=== PATIENT | female | born 1950 | race Caucasian/White ===

== ENCOUNTER → 2017-08-01 11:00 | Outpatient (CLI) | payer MEDICARE, OTHER, SELFPAY ==
[2017-08-01 12:59] LABS: Alanine Aminotransferase 29 IU/L (9-52); Albumin 4.2 g/dL (3.5-5.0); Albumin Globulin Ratio 1.6 (1.0-2.8); Alkaline Phosphatase 85 U/L (38-126); Aspartate Aminotransferase 27 IU/L (14-36); Bilirubin Total 0.8 mg/dL (0.2-1.3); Blood Urea Nitrogen 12 mg/dL (7-17); Calcium 9.3 mg/dL (8.4-10.2); Carbon Dioxide 31 mmol/L (22-32); Chloride 99 mmol/L (98-107); Cholesterol 175 mg/dL (140-199); Estimated Glomerular Filt Rate > 60.0 mL/min (>60); Globulin 2.7 g/dL (1.7-4.1); Glucose 114 mg/dL (80-110); HDL Cholesterol 65 mg/dL (40-60); HEMOLYSIS < 15 (0-50); LDL Cholesterol Calculated 94 mg/dL (<100); Potassium 4.1 mmol/L (3.4-5.1); Sodium 139 mmol/L (137-145); Total Protein 6.9 g/dL (6.3-8.2); Triglycerides 82 mg/dL (35-150)
== END ==
PROVIDERS: Family Provider Internal Medicine; PCP Internal Medicine; Visit Provider Internal Medicine
DX: E05.90 Thyrotoxicosis, unspecified without thyrotoxic crisis or storm (principal); E78.2 Mixed hyperlipidemia
CPT/HCPCS: 36415; 80053; 80061; 84439; 84443

== ENCOUNTER → 2018-04-11 12:00 | Outpatient (CLI) | payer OTHER, SELFPAY ==
[2018-04-11 14:35] LABS: Appearance Urine UA CLEAR; Bilirubin Urine UA NEGATIVE (NEGATIVE); Color Urine UA YELLOW; Glucose Urine UA NEGATIVE (Negative); Ketones Urine UA NEGATIVE (NEGATIVE); Leukocyte Esterase Urine UA 1+ (NEGATIVE); Nitrite Urine UA NEGATIVE (Negative); Occult Blood Urine UA TRACE-LYSED (Negative); Protein Urine UA NEGATIVE (Negative); Specific Gravity Urine UA 1.015 (1.000-1.035); Urobilinogen Urine UA 0.2 E.U./dL (0.2)
[2018-04-11 15:23] LABS: Bacteria Urine Few (2-10); Culture Indicated Urine Specimen Cultured; RBC Urine 0-1/HPF (0-5/HPF); Squamous Epithelial Cell Urine 0-1 /HPF; WBC Urine 5-10/HPF (0-5/HPF)
== END ==
PROVIDERS: PCP Internal Medicine; Visit Provider Internal Medicine
DX: R39.89 Other symptoms and signs involving the genitourinary system (principal)
CPT/HCPCS: 81001; 87086

== ENCOUNTER → 2018-06-20 11:02 | Outpatient (CLI) | payer OTHER, SELFPAY ==
--- NOTE | 2018-06-20 | DI.MG.S_ITS ---
BILATERAL DIGITAL SCREENING MAMMOGRAM 3D/2D WITH CAD: 06/20/2018 CLINICAL: Routine screening. Family history of breast cancer. Comparison is made to exams dated: 06/13/2017 mammogram, 04/14/2015 mammogram, and 04/11/2014 mammogram - [facility]. The tissue of both breasts is heterogeneously dense. This may lower the sensitivity of mammography. Current study was also evaluated with a Computer Aided Detection (CAD) system. No significant masses, calcifications, or other findings are seen in either breast. There has been no significant interval change. IMPRESSION: NEGATIVE There is no mammographic evidence of malignancy. A 1 year screening mammogram is recommended. This exam was interpreted at Station ID: [id number]. NOTE: For mammograms, a report in lay terms will be sent to the patient. Approximately 15% of breast malignancies will not be visualized mammographically. In the management of a palpable breast mass, a negative mammogram must not discourage biopsy of a clinically suspicious lesion. Electronically Signed By: Lizzy lambert/yuniel:06/20/2018 17:48:14 letter sent: Normal Exam ACR BI-RADS Category 1: Negative 3341F
== END ==
PROVIDERS: PCP Internal Medicine; Visit Provider Internal Medicine
DX: Z12.31 Encounter for screening mammogram for malignant neoplasm of breast (principal); Z80.3 Family history of malignant neoplasm of breast
CPT/HCPCS: 77063; 77067

== ENCOUNTER → 2018-08-07 11:31 | Outpatient (CLI) | payer OTHER, SELFPAY ==
[2018-08-07 14:29] LABS: Alanine Aminotransferase 23 IU/L (9-52); Albumin 4.1 g/dL (3.5-5.0); Albumin Globulin Ratio 1.6 (1.0-2.8); Alkaline Phosphatase 81 U/L (38-126); Aspartate Aminotransferase 32 IU/L (14-36); BUN Creatinine Ratio 16.7 (6-22); Bilirubin Total 0.8 mg/dL (0.2-1.3); Blood Urea Nitrogen 10 mg/dL (7-17); Calcium 9.3 mg/dL (8.4-10.2); Carbon Dioxide 29 mmol/L (22-32); Chloride 101 mmol/L (98-107); Cholesterol 181 mg/dL (140-199); Estimated Glomerular Filt Rate > 60.0 mL/min (>60); Globulin 2.6 g/dL (1.7-4.1); Glucose 130 mg/dL (80-110); HDL Cholesterol 59 mg/dL (40-60); HEMOLYSIS < 15 (0-50); LDL Cholesterol Calculated 106 mg/dL (<100); Potassium 4.4 mmol/L (3.4-5.1); Sodium 138 mmol/L (137-145); Total Protein 6.7 g/dL (6.3-8.2); Triglycerides 78 mg/dL (35-150)
[2018-08-07 16:30] LABS: Free T4, Direct Thyroxine 1.56 ng/dL (0.78-2.19)
[2018-08-07 16:44] LABS: Thyroid Stimulating Hormone 0.09 uIU/mL (0.47-4.68)
== END ==
PROVIDERS: PCP Internal Medicine; Visit Provider Internal Medicine
DX: E03.9 Hypothyroidism, unspecified (principal); E78.2 Mixed hyperlipidemia; R73.9 Hyperglycemia, unspecified
CPT/HCPCS: 36415; 80053; 80061; 84439; 84443

== ENCOUNTER → 2018-08-29 12:17 | Outpatient (CLI) | payer OTHER, SELFPAY ==
[2018-08-29 12:36] LABS: Bilirubin Urine UA NEGATIVE (NEGATIVE); Color Urine UA YELLOW; Glucose Urine UA NEGATIVE (Negative); Ketones Urine UA NEGATIVE (NEGATIVE); Leukocyte Esterase Urine UA 2+ (NEGATIVE); Nitrite Urine UA NEGATIVE (Negative); Occult Blood Urine UA 3+ (Negative); Protein Urine UA 2+ (Negative); Specific Gravity Urine UA 1.025 (1.000-1.035); Urobilinogen Urine UA 0.2 E.U./dL (0.2); pH Urine UA 5.5 (4.5-8.0)
[2018-08-29 12:43] LABS: Appearance Urine UA CLOUDY
[2018-08-29 12:52] LABS: RBC Urine >100/HPF (0-5/HPF)
[2018-08-29 12:53] LABS: Bacteria Urine Many (>30); Culture Indicated Urine Specimen Cultured; Renal Epithelial Cells Urine 0-1/HPF (0-1/HPF); Squamous Epithelial Cell Urine 1-5 /HPF (0-5/HPF); Transitional Epi Cells Urine 0-1/HPF (0-5/HPF); WBC Urine 30-100/HPF (0-5/HPF)
== END ==
PROVIDERS: PCP Internal Medicine; Visit Provider Internal Medicine
DX: R30.0 Dysuria (principal)
CPT/HCPCS: 81001; 87077; 87086; 87186

== ENCOUNTER → 2018-10-12 12:18 | Outpatient (CLI) | payer OTHER, SELFPAY ==
[2018-10-15 13:59] LABS: Fecal Immunochemical Test NOT DETECTED (NOT DETECTED)
== END ==
PROVIDERS: PCP Internal Medicine; Visit Provider Internal Medicine
DX: Z12.11 Encounter for screening for malignant neoplasm of colon (principal)
CPT/HCPCS: 82274

== ENCOUNTER → 2019-01-11 12:49 | Outpatient (CLI) | payer OTHER, SELFPAY | PROVIDERS: PCP Internal Medicine; Visit Provider Internal Medicine | DX: M81.0 Age-related osteoporosis without current pathological fracture (principal); Z78.0 Asymptomatic menopausal state; E07.9 Disorder of thyroid, unspecified; Z82.62 Family history of osteoporosis | CPT/HCPCS: 77080 ==

== ENCOUNTER → 2019-03-19 11:06 | Outpatient (CLI) | payer OTHER, SELFPAY ==
--- NOTE | 2019-03-22 16:16 | PM.PFT.1 ---
Pulmonary Function Test Referral & Results Date Patient Seen: 03/19/19 Requesting provider: Dillon Castellon Results: The spirometry demonstrates an FVC of 2.6 year L which is 90% of predicted. The FEV1 was measured at 1.68 L which is 77% of predicted. The FEV1/FVC ratio was 65 which is 85% of predicted. Following the administration of bronchodilator there was no appreciable change. Lung volumes show an SVC of 2.63 L which is 93% of predicted. The diffusing capacity was measured at 18.71 which is 81% of predicted. The maximum voluntary ventilation was reduced Interpretation: This study demonstrates mild to moderate obstructive lung disease based on reduction FEV1. There is no evidence of benefit following bronchodilator Compared to PFTs performed in January 2016, current study is significantly improved with improvement in FVC and FEV1.
== END ==
PROVIDERS: PCP Internal Medicine; Referring Provider Internal Medicine; Visit Provider Internal Medicine
DX: J45.909 Unspecified asthma, uncomplicated (principal)
CPT/HCPCS: 94060; 94726; 94729

== ENCOUNTER → 2019-04-04 17:00 | Outpatient (CLI) | payer OTHER, SELFPAY ==
[2019-04-04 17:05] LABS: Bacteria Urine None Seen
[2019-04-04 18:46] LABS: Appearance Urine UA CLEAR; Bilirubin Urine UA NEGATIVE (NEGATIVE); Color Urine UA YELLOW; Glucose Urine UA NEGATIVE (Negative); Ketones Urine UA NEGATIVE (NEGATIVE); Leukocyte Esterase Urine UA NEGATIVE (NEGATIVE); Nitrite Urine UA NEGATIVE (Negative); Occult Blood Urine UA NEGATIVE (Negative); Protein Urine UA NEGATIVE (Negative); Specific Gravity Urine UA 1.025 (1.000-1.035); Urobilinogen Urine UA 0.2 E.U./dL (0.2)
[2019-04-04 19:08] LABS: Amorphous Sediment Urine 1+; Calcium Oxalate Crystals Urine Few; Culture Indicated Urine Cult Not Indicated; RBC Urine 0-1/HPF (0-5/HPF); Squamous Epithelial Cell Urine 1-5 /HPF (0-5/HPF); Transitional Epi Cells Urine 1-5/HPF (0-5/HPF); WBC Urine 0-1/HPF (0-5/HPF)
== END ==
PROVIDERS: PCP Internal Medicine; Referring Provider Internal Medicine; Visit Provider Internal Medicine
DX: R39.89 Other symptoms and signs involving the genitourinary system (principal)
CPT/HCPCS: 81001

== ENCOUNTER → 2019-10-10 11:09 | Outpatient (CLI) | payer OTHER, SELFPAY ==
[2019-10-10 12:17] LABS: Alanine Aminotransferase 17 IU/L (<35); Albumin 4.1 g/dL (3.5-5.0); Alkaline Phosphatase 87 U/L (38-126); Aspartate Aminotransferase 23 IU/L (14-36); BUN Creatinine Ratio 25.5 (6-22); Bilirubin Total 0.6 mg/dL (0.2-1.3); Blood Urea Nitrogen 13 mg/dL (7-17); Calcium 9.4 mg/dL (8.4-10.2); Carbon Dioxide 30 mmol/L (22-32); Chloride 102 mmol/L (98-107); Cholesterol 156 mg/dL (140-199); Estimated Glomerular Filt Rate > 60.0 mL/min (>60); Globulin 2.1 g/dL (1.7-4.1); Glucose 158 mg/dL (80-110); HDL Cholesterol 60 mg/dL (40-60); HEMOLYSIS < 15 (0-50); LDL Cholesterol Calculated 77 mg/dL (<100); Potassium 4.9 mmol/L (3.4-5.1); Sodium 137 mmol/L (137-145); Total Protein 6.2 g/dL (6.3-8.2); Triglycerides 97 mg/dL (35-150)
[2019-10-10 12:34] LABS: Free T4, Direct Thyroxine 1.54 ng/dL (0.78-2.19)
[2019-10-10 12:48] LABS: Thyroid Stimulating Hormone 0.017 uIU/mL (0.47-4.68)
== END ==
PROVIDERS: PCP Internal Medicine; Referring Provider Internal Medicine; Visit Provider Internal Medicine
DX: E03.9 Hypothyroidism, unspecified (principal); E78.2 Mixed hyperlipidemia; R73.9 Hyperglycemia, unspecified
CPT/HCPCS: 36415; 80053; 80061; 84439; 84443

== ENCOUNTER → 2019-11-28 11:05 | Outpatient (CLI) | payer OTHER, SELFPAY ==
[2019-11-28 12:26] LABS: Hemoglobin A1C% w Est Avg Glu 7.7 % (4.0-6.0)
[2019-11-28 22:03] LABS: Blood Urea Nitrogen 10 mg/dL (7-17); Carbon Dioxide 29 mmol/L (22-32); Chloride 104 mmol/L (98-107); Estimated Glomerular Filt Rate > 60.0 mL/min (>60); Glucose 165 mg/dL (80-110); HEMOLYSIS < 15 (0-50); Potassium 4.3 mmol/L (3.4-5.1); Sodium 137 mmol/L (137-145)
== END ==
PROVIDERS: PCP Internal Medicine; Referring Provider Internal Medicine; Visit Provider Internal Medicine
DX: R73.9 Hyperglycemia, unspecified (principal)
CPT/HCPCS: 36415; 80048; 83036

== ENCOUNTER → 2019-12-04 12:20 | Outpatient (CLI) | payer OTHER, SELFPAY ==
--- NOTE | 2019-12-04 | DI.MG.S_ITS ---
BILATERAL DIGITAL SCREENING MAMMOGRAM 3D/2D WITH CAD: 12/04/2019 CLINICAL: Routine screening. Family history of breast cancer. Comparison is made to exams dated: 06/20/2018 mammogram, 06/13/2017 mammogram, and 04/14/2015 mammogram - [facility]. The tissue of both breasts is heterogeneously dense. This may lower the sensitivity of mammography. Current study was also evaluated with a Computer Aided Detection (CAD) system. No significant masses, calcifications, or other findings are seen in either breast. There has been no significant interval change. IMPRESSION: NEGATIVE There is no mammographic evidence of malignancy. A 1 year screening mammogram is recommended. This exam was interpreted at Station ID: [id number]. NOTE: For mammograms, a report in lay terms will be sent to the patient. Approximately 15% of breast malignancies will not be visualized mammographically. In the management of a palpable breast mass, a negative mammogram must not discourage biopsy of a clinically suspicious lesion. Electronically Signed By: Lizzy lambert/yuniel:12/04/2019 17:36:35 letter sent: Normal Exam ACR BI-RADS Category 1: Negative 3341F
== END ==
PROVIDERS: PCP Internal Medicine; Referring Provider Internal Medicine; Visit Provider Internal Medicine
DX: Z12.31 Encounter for screening mammogram for malignant neoplasm of breast (principal); Z80.3 Family history of malignant neoplasm of breast
CPT/HCPCS: 77063; 77067

== ENCOUNTER → 2019-12-20 15:19 | Outpatient (CLI) | payer OTHER, SELFPAY ==
[2019-12-23 07:36] LABS: Fecal Immunochemical Test Negative (Negative)
== END ==
PROVIDERS: PCP Internal Medicine; Referring Provider Internal Medicine; Visit Provider Internal Medicine
DX: Z12.11 Encounter for screening for malignant neoplasm of colon (principal)
CPT/HCPCS: 82274

== ENCOUNTER → 2020-04-09 13:58 | Outpatient (CLI) | payer OTHER, SELFPAY ==
--- NOTE | 2020-04-09 14:48 | DIET.PN ---
Diabetes Intake: Initial Assessment Assess: Ms. Gudino is a 69 yof referred for newly diagnosed type 2 diabetes. She has a pmhx of arthritis, asthma, hyperthyroid, osteoporosis and GERD. She reports a 30# weight loss 4-5 yrs ago, but has maintained a steady weight through dietary choices. She has cut out all white foods and pastas. She ride her stationary bike daily. She does not have a glucometer and does not wish to start monitoring until new lab results. Labs: Per pt report: A1c: 7.7 Meds: na supps: Ca Diet: per 24 hr recall: B: string cheese w/ banana L : welsh yogurt, half multi grain bagel or celery with hummus D: tuna, peppers, avocado Sn: granola, fruit Wt: 174lb Ht: 63in BMI: 30.9 BP: 137/75 DX: Altered nutrition related laboratory values related to impaired glucose metabolism, lack of previous exposure to nutrition information as evidenced by pt report, diagnosis of diabetes, previous diet high in refined carbohydrates. Intervention: 1. Completed intake assessment. Discussed barriers to care. 2. Discussed pathophysiology of diabetes. Reviewed A1c and its correlation to blood glucose numbers. Discussed recommended BG ranges. 3. Discussed importance of self-monitoring, how often, and when to check. 4. Reviewed hyper/hypoglycemia and treatment. 5. Reviewed safe disposal of equipment (strip/lancets/insulin needles). 6. Created SMART goals for pt self-care and success. 7. Discussed program curriculum outline and class needs based on individual goals. SMART Goals: 1. Goal weight of 140 lb (30lb weight loss) and A1c <70 in the next 6 mo through learning carb counting, portion control, plate method, and increased intensity physical activity. Monitor/Evaluate: Pt will attend full DSME program. Basic Nutrition class scheduled for Apr 30. Today?s visit was done via tele [employer]. 1 hour was spent [id number] by video. Patient consented to receive these services via tele [employer] using the [employer] application. Participants in the tele conference were myself and the patient only. I was located at [facility] and the patient at his/her home.
== END ==
PROVIDERS: PCP Internal Medicine; Referring Provider Internal Medicine; Visit Provider Internal Medicine
DX: E11.9 Type 2 diabetes mellitus without complications (principal)
CPT/HCPCS: G0108

== ENCOUNTER → 2020-04-30 14:07 | Outpatient (CLI) | payer OTHER, SELFPAY ==
--- NOTE | 2020-04-30 14:42 | DIET.PN ---
Addendum entered by hCeryl Owusu 04/30/20 14:43: Today?s visit was done via tele [employer]. 1 hour was spent [id number] by video. Patient consented to receive these services via [employer] using the [employer] application. Participants in the tele conference were myself and the patient only. I was located at [facility] and the patient at his/her home. Original Note: Diabetes: Healthy Eating 1 Intervention: ? Discussed pathophysiology of diabetes and impact of nutrition/diet on blood sugar control.? Discussed fed versus non-fed state.?? ? Reviewed importance of Balance, Variety, and Moderation. ? Discussed the effect of carbohydrates/protein/fat on blood sugar control.? ? Stressed importance of consistent carbohydrate intake at each meal and provided instructions for recommended servings/portions of carbohydrates/protein per meal. Provided educational material. ? Reviewed carbohydrate counting and measuring carbohydrate content via serving sizes and reading nutrition labels.? Provided handouts.?? ? Discussed the difference between simple versus complex carbohydrates and the effect of fiber on blood sugar control.? Discussed various methods to increase fiber content in diet. ? Discussed the plate method for creating more carbohydrate conscious balanced meals. ? Stressed importance of meal timing and not going >4-5 hours between meals. Encouraged adding protein to evening snack to support glucose control overnight. ? Discussed importance of making dietary habits part of lifestyle change. Diabetes: Healthy Eating 2 Intervention: Fats effects on glucose, weight, heart disease, cholesterol Sat Vs Unsat Protein- animal and plant based options Low, med, high fat meats Sugar substitutes Sodium Health claims Grocery shopping guidelines Eating away from home Alcohol Sick day guidelines Ketone Testing
== END ==
PROVIDERS: PCP Internal Medicine; Referring Provider Internal Medicine; Visit Provider Internal Medicine
DX: E11.9 Type 2 diabetes mellitus without complications (principal); Z71.3 Dietary counseling and surveillance
CPT/HCPCS: G0108

== ENCOUNTER → 2020-06-24 11:17 | Outpatient (CLI) | payer OTHER, SELFPAY ==
[2020-06-24 12:31] LABS: Alanine Aminotransferase 17 IU/L (<35); Albumin 4.2 g/dL (3.5-5.0); Alkaline Phosphatase 100 U/L (38-126); Aspartate Aminotransferase 22 IU/L (14-36); BUN Creatinine Ratio 24.5 (6-22); Bilirubin Total 0.5 mg/dL (0.2-1.3); Blood Urea Nitrogen 12 mg/dL (7-17); Calcium 9.5 mg/dL (8.4-10.2); Carbon Dioxide 27 mmol/L (22-32); Chloride 101 mmol/L (98-107); Cholesterol 164 mg/dL (140-199); Estimated Glomerular Filt Rate > 60.0 mL/min (>60); Globulin 2.1 g/dL (1.7-4.1); Glucose 172 mg/dL (80-110); HDL Cholesterol 62 mg/dL (40-60); HEMOLYSIS < 15 (0-50); LDL Cholesterol Calculated 78 mg/dL (<100); Potassium 4.4 mmol/L (3.4-5.1); Sodium 136 mmol/L (137-145); Total Protein 6.3 g/dL (6.3-8.2); Triglycerides 121 mg/dL (35-150)
[2020-06-24 12:47] LABS: Hemoglobin A1C% w Est Avg Glu 7.9 % (4.0-6.0)
[2020-06-24 13:26] LABS: Thyroid Stimulating Hormone < 0.015 uIU/mL (0.47-4.68)
[2020-06-24 18:05] LABS: Creatinine Urine Random 44.6 mg/dL
[2020-06-24 18:10] LABS: Microalbumin Urine Random < 0.6 mg/dL (0-1.6)
== END ==
PROVIDERS: PCP Internal Medicine; Referring Provider Internal Medicine; Visit Provider Internal Medicine
DX: E11.9 Type 2 diabetes mellitus without complications (principal); E78.2 Mixed hyperlipidemia; E03.9 Hypothyroidism, unspecified
CPT/HCPCS: 36415; 80053; 80061; 82043; 82570; 83036; 84439; 84443

== ENCOUNTER → 2020-10-07 12:42 | Outpatient (CLI) | payer OTHER, SELFPAY ==
[2020-10-07 14:43] LABS: Appearance Urine UA SL CLOUDY; Bilirubin Urine UA NEGATIVE (NEGATIVE); Color Urine UA YELLOW; Glucose Urine UA TRACE g/dL (Negative); Ketones Urine UA NEGATIVE (NEGATIVE); Leukocyte Esterase Urine UA 3+ (NEGATIVE); Nitrite Urine UA NEGATIVE (Negative); Occult Blood Urine UA 3+ (Negative); Protein Urine UA NEGATIVE (Negative); Urobilinogen Urine UA 0.2 E.U./dL (0.2)
[2020-10-07 15:12] LABS: pH Urine UA 5.5 (4.5-8.0)
[2020-10-07 15:14] LABS: Amorphous Sediment Urine 2+; Bacteria Urine Moderate (10-30); RBC Urine 5-10/HPF (0-5/HPF); Transitional Epi Cells Urine 1-5/HPF (0-5/HPF); WBC Urine 10-30/HPF (0-5/HPF)
[2020-10-07 15:15] LABS: Culture Indicated Urine Specimen Cultured
== END ==
PROVIDERS: PCP Internal Medicine; Referring Provider Internal Medicine; Visit Provider Internal Medicine
DX: R30.0 Dysuria (principal)
CPT/HCPCS: 81001; 87077; 87086; 87186

== ENCOUNTER → 2020-10-16 11:32 | Outpatient (CLI) | payer OTHER, SELFPAY ==
[2020-10-16 13:08] LABS: BUN Creatinine Ratio 22.4 (6-22); Blood Urea Nitrogen 11 mg/dL (7-17); Calcium 9.2 mg/dL (8.4-10.2); Carbon Dioxide 28 mmol/L (22-32); Chloride 102 mmol/L (98-107); Estimated Glomerular Filt Rate > 60.0 mL/min (>60); Glucose 167 mg/dL (80-110); HEMOLYSIS < 15 (0-50); Potassium 4.6 mmol/L (3.4-5.1); Sodium 136 mmol/L (137-145)
[2020-10-16 13:10] LABS: Hemoglobin A1C% w Est Avg Glu 7.3 % (4.0-6.0)
== END ==
PROVIDERS: PCP Internal Medicine; Referring Provider Internal Medicine; Visit Provider Internal Medicine
DX: E11.00 Type 2 diabetes mellitus with hyperosmolarity without nonketotic hyperglycemic-hyperosmolar coma (NKHHC) (principal)
CPT/HCPCS: 36415; 80048; 83036

== ENCOUNTER → 2021-01-12 15:20 | Outpatient (CLI) | payer OTHER, SELFPAY ==
--- NOTE | 2021-01-12 15:21 | DI.MG.S_ITS ---
BILATERAL DIGITAL SCREENING MAMMOGRAM 3D/2D WITH CAD: 01/12/2021 CLINICAL: Routine screening. Family history of breast cancer. Comparison is made to exams dated: 12/04/2019 mammogram, 06/20/2018 mammogram, and 06/13/2017 mammogram - [facility]. The tissue of both breasts is heterogeneously dense. This may lower the sensitivity of mammography. Current study was also evaluated with a Computer Aided Detection (CAD) system. No significant masses, calcifications, or other findings are seen in either breast. There has been no significant interval change. IMPRESSION: NEGATIVE There is no mammographic evidence of malignancy. A 1 year screening mammogram is recommended. This exam was interpreted at Station ID: [id number]. NOTE: For mammograms, a report in lay terms will be sent to the patient. Approximately 15% of breast malignancies will not be visualized mammographically. In the management of a palpable breast mass, a negative mammogram must not discourage biopsy of a clinically suspicious lesion. Electronically Signed By: Charli narvaez/yuniel:01/12/2021 16:39:52 letter sent: Normal Exam ACR BI-RADS Category 1: Negative 3341F
== END ==
PROVIDERS: PCP Internal Medicine; Referring Provider Internal Medicine; Visit Provider Internal Medicine
DX: Z12.31 Encounter for screening mammogram for malignant neoplasm of breast (principal); Z80.3 Family history of malignant neoplasm of breast
CPT/HCPCS: 77063; 77067

== ENCOUNTER → 2021-01-14 14:28 | Outpatient (CLI) | payer OTHER, SELFPAY | PROVIDERS: PCP Internal Medicine; Referring Provider Internal Medicine; Visit Provider Internal Medicine | DX: M81.0 Age-related osteoporosis without current pathological fracture (principal); Z78.0 Asymptomatic menopausal state; E07.9 Disorder of thyroid, unspecified; Z82.62 Family history of osteoporosis | CPT/HCPCS: 77080 ==

== ENCOUNTER → 2021-01-16 13:00 | Outpatient (ROUT) | payer OTHER, SELFPAY ==
[2021-01-18 08:22] LABS: Fecal Immunochemical Test Negative (Negative)
== END ==
PROVIDERS: PCP Internal Medicine; Visit Provider Internal Medicine
DX: Z12.11 Encounter for screening for malignant neoplasm of colon (principal)
CPT/HCPCS: 82274

== ENCOUNTER → 2021-02-18 10:59 | Outpatient (CLI) | payer OTHER, SELFPAY ==
[2021-02-18 12:23] LABS: BUN Creatinine Ratio 25.5 (6-22); Blood Urea Nitrogen 13 mg/dL (7-17); Calcium 9.1 mg/dL (8.4-10.2); Carbon Dioxide 29 mmol/L (22-32); Chloride 101 mmol/L (98-107); Estimated Glomerular Filt Rate > 60.0 mL/min (>60); Glucose 236 mg/dL (80-110); HEMOLYSIS < 15 (0-50); Potassium 4.4 mmol/L (3.4-5.1); Sodium 136 mmol/L (137-145)
== END ==
PROVIDERS: PCP Internal Medicine; Referring Provider Internal Medicine; Visit Provider Internal Medicine
DX: E11.00 Type 2 diabetes mellitus with hyperosmolarity without nonketotic hyperglycemic-hyperosmolar coma (NKHHC) (principal)
CPT/HCPCS: 36415; 80048; 83036

== ENCOUNTER → 2021-03-22 15:24 | Outpatient (CLI) | payer OTHER, SELFPAY ==
[2021-03-22 16:00] LABS: Appearance Urine UA SL CLOUDY; Bilirubin Urine UA NEGATIVE (NEGATIVE); Color Urine UA YELLOW; Glucose Urine UA NEGATIVE (Negative); Ketones Urine UA NEGATIVE (NEGATIVE); Leukocyte Esterase Urine UA 3+ (NEGATIVE); Nitrite Urine UA NEGATIVE (Negative); Occult Blood Urine UA 2+ (Negative); Protein Urine UA NEGATIVE (Negative); Specific Gravity Urine UA <=1.005 (1.000-1.035); Urobilinogen Urine UA 0.2 E.U./dL (0.2)
[2021-03-22 16:03] LABS: pH Urine UA 5.5 (4.5-8.0)
[2021-03-22 16:23] LABS: Bacteria Urine Moderate (10-30); Culture Indicated Urine Specimen Cultured; RBC Urine None Seen (0-5/HPF); Squamous Epithelial Cell Urine 0-1 /HPF (0-5/HPF); Transitional Epi Cells Urine 0-1/HPF (0-5/HPF); WBC Urine >100/HPF (0-5/HPF)
== END ==
PROVIDERS: PCP Internal Medicine; Referring Provider Internal Medicine; Visit Provider Internal Medicine
DX: R30.9 Painful micturition, unspecified (principal)
CPT/HCPCS: 81001; 87077; 87086; 87186

== ENCOUNTER → 2021-05-20 11:19 | Outpatient (CLI) | payer OTHER, SELFPAY ==
[2021-05-20 13:34] LABS: Hemoglobin A1C% w Est Avg Glu 7.9 % (4.0-6.0)
[2021-05-20 14:29] LABS: BUN Creatinine Ratio 19.2 (6-22); Blood Urea Nitrogen 10 mg/dL (7-17); Calcium 8.7 mg/dL (8.4-10.2); Carbon Dioxide 28 mmol/L (22-32); Chloride 103 mmol/L (98-107); Estimated Glomerular Filt Rate > 60 mL/min (>60); Glucose 158 mg/dL (80-110); HEMOLYSIS 18 (0-50); Potassium 4.5 mmol/L (3.4-5.1); Sodium 139 mmol/L (137-145)
== END ==
PROVIDERS: PCP Internal Medicine; Referring Provider Internal Medicine; Visit Provider Internal Medicine
DX: E11.65 Type 2 diabetes mellitus with hyperglycemia (principal)
CPT/HCPCS: 36415; 80048; 83036

== ENCOUNTER → 2021-08-11 10:57 | Outpatient (CLI) | payer OTHER, SELFPAY ==
[2021-08-11 11:35] LABS: Alanine Aminotransferase 19 IU/L (<35); Albumin 4.2 g/dL (3.5-5.0); Albumin Globulin Ratio 1.7 (1.0-2.8); Alkaline Phosphatase 88 U/L (38-126); Aspartate Aminotransferase 22 IU/L (14-36); BUN Creatinine Ratio 22.6 (6-22); Bilirubin Total 0.6 mg/dL (0.2-1.3); Blood Urea Nitrogen 12 mg/dL (7-17); Calcium 8.7 mg/dL (8.4-10.2); Carbon Dioxide 26 mmol/L (22-32); Chloride 102 mmol/L (98-107); Estimated Glomerular Filt Rate > 60 mL/min (>60); Globulin 2.5 g/dL (1.7-4.1); Glucose 158 mg/dL (80-110); HEMOLYSIS < 15 (0-50); Hemoglobin A1C% w Est Avg Glu 7.3 % (4.0-6.0); Potassium 4.3 mmol/L (3.4-5.1); Sodium 136 mmol/L (137-145); Total Protein 6.7 g/dL (6.3-8.2)
[2021-08-11 12:04] LABS: TSH w/ Reflex to FT4 < 0.02 uIU/mL (0.47-4.68)
[2021-08-11 12:30] LABS: Free T4, Direct Thyroxine 1.65 ng/dL (0.78-2.19)
== END ==
PROVIDERS: PCP Internal Medicine; Referring Provider Internal Medicine; Visit Provider Internal Medicine
DX: E11.9 Type 2 diabetes mellitus without complications (principal); E03.9 Hypothyroidism, unspecified; E11.65 Type 2 diabetes mellitus with hyperglycemia; E78.2 Mixed hyperlipidemia
CPT/HCPCS: 36415; 80053; 83036; 84439; 84443

== ENCOUNTER 2022-01-16 17:51 | Emergency (ER) | payer OTHER, SELFPAY ==
[2022-01-16] VITALS (11 sets, daily range): BP systolic 160–184; BP diastolic 72–80; PULSE 81–97; RESP 16–24; TEMP 37.3; O2SAT 96–97; BMI 26.5
--- NOTE | 2022-01-16 18:34 | DI.RAD.S_ITS ---
PROCEDURE: XR HIP W PEL IF DONE RT 2V INDICATIONS: fall with hip pain TECHNIQUE: 2 views of the pelvis right hip were acquired. COMPARISON: None. FINDINGS: Bones: No fractures or dislocations. No suspicious bony lesions. The visualized pelvic ring appears intact. The right hip has degenerative changes. There are degenerative changes of both hips and the symphysis pubis. Soft tissues: No suspicious soft tissue calcifications or masses. IMPRESSION: No acute traumatic abnormality of the pelvis or right hip. Dictated by: Jossue Carrillo M.D. on 01/16/2022 at 19:23 Approved by: Jossue Carrillo M.D. on 01/16/2022 at 19:25
--- NOTE | 2022-01-16 18:34 | DI.RAD.S_ITS ---
PROCEDURE: XR CHEST 1V INDICATIONS: weakness TECHNIQUE: One view of the chest was acquired. COMPARISON: [facility], , CHEST 2 VIEW, 01/19/2016, 13:30. FINDINGS: Surgical changes and devices: None. Lungs and pleura: Lungs are clear. No pleural effusions or pneumothorax. Interstitial prominence is unchanged compared to the prior study and is likely chronic. Mediastinum: Mediastinal contours appear normal. Heart size is normal. Bones and chest wall: No suspicious bony lesions. Overlying soft tissues appear unremarkable. IMPRESSION: No acute cardiopulmonary abnormality. Dictated by: Jossue Carrillo M.D. on 01/16/2022 at 19:22 Approved by: Jossue Carrillo M.D. on 01/16/2022 at 19:23
--- NOTE | 2022-01-16 18:38 | ED_ITS ---
HPI - Weakness General Chief complaint: Weakness Stated complaint: R hip pain, GLF Time Seen by Provider: 01/16/22 18:05 Source: patient Mode of arrival: Wheelchair History of Present Illness HPI Narrative: 71-year-old female nonsmoker with history of type 2 diabetes, hyperlipidemia and GERD presents with family and a chief complaint of feeling a bit under the weather for the past few days. She states that she has had nausea and some e pisodes of vomiting and is now generally weak. She denies headache or blurred vision. She denies any sore throat, sneezing or cough. She has no chest pain or shortness of breath. She denies abdominal pain diarrhea or trouble with urinating. She states that as a consequence of her feeling under the weather she tripped and fell and injured her right hip. She now has pain with ambulation and has been unable to put much weight on it. She denies numbness, tingling or weakness. She has full recall of the event and states she did not strike her head nor did she injure her neck or back Related Data Home Medications Medication Instructions Recorded Confirmed latanoprost 0.005 % eye drops 1 drp [facility] HS ##0 12/21/10 08/17/21 (Xalatan) ascorbic acid (vitamin C) 500 mg 500 mg PO QDAY #0 tabs 11/13/12 08/17/21 tablet calcium carbonate 400 mg calcium 1,000 mg PO ##0 01/27/17 08/17/21 (1,000 mg) chewable tablet (Tums Ultra) loratadine 10 mg tablet (Claritin) 10 mg PO QDAY PRN allergy symptoms 02/19/19 08/17/21 ##0 timolol maleate 0.5 % eye drops 1 drop EYE-BOTH DAILY 10/31/19 08/17/21 Previous Rx's Medication Instructions Recorded Spacer: Inhaler Spacer Device ea ##1 08/18/16 albuterol sulfate 90 mcg/actuation 1 - 2 puff INH Q4HP PRN ##8 04/30/18 aerosol inhaler (Ventolin HFA) Disabled Parking #1 ea 02/19/19 sumatriptan succinate 50 mg tablet 50 mg PO Q4H PRN migraine headache 02/11/21 #9 tabs atorvastatin 10 mg tablet 10 mg PO DAILY #90 tabs 03/30/21 diclofenac sodium 75 mg 75 - 150 mg PO DAILY #180 tabs 04/01/21 tablet,delayed release fluticasone propionate 50 2 spray intranasal HS #16 grams 04/19/21 mcg/actuation nasal spray,suspension glipizide 5 mg tablet 2.5 mg PO BID #90 tabs 08/17/21 lansoprazole 30 mg capsule,delayed 30 mg PO DAILY #90 tabs 10/19/21 release fluoxetine 10 mg capsule (Prozac) 10 mg PO QDAY #90 caps 11/01/21 cephalexin 500 mg capsule 500 mg PO BID #10 caps 01/16/22 Allergies Allergy/AdvReac Type Severity Reaction Status Date / Time naproxen Allergy Severe LIPS, Verified 08/17/21 14:46 MOUTH, TONGUE SWELLING, SOB epinephrine [EPINEPHRINE] Allergy Mild MAKES Verified 08/17/21 14:46 HEART RACE - DENTAL metformin AdvReac Severe n/v Verified 08/17/21 14:46 diclofenac AdvReac Intermediate nausea Verified 08/17/21 14:46 Review of Systems Review of Systems Narrative: GENERAL: See HPI HEENT: Denies sinus pain, ear pain, sore throat, difficulty swallowing, dizziness. RESPIRATORY: Denies dyspnea, cough, wheezing, hemoptysis, sputum. CARDIOVASCULAR: Denies chest pain, palpitations, orthopnea, edema, GASTROINTESTINAL: See HPI : Denies dysuria, frequency, incontinence, hematuria, urinary retention. MUSCULOSKELETAL: See HPI SKIN: Denies rash, skin lesions, or other NEUROLOGIC: Denies weakness, headache, numbness, change in speech, confusion, seizures, incoordination. PSYCHIATRIC: No concerning psychosocial issues. 12 point review of systems is negative except for those stated above Patient History Medical History Anxiety Chicken pox (~1950) Chronic cough Diabetes type 2, controlled Diabetes type 2, uncontrolled Gastroesophageal reflux disease without esophagitis (12/21/10) Glaucoma (12/21/10) Hay fever Hemorrhoid (~1979) History of urinary incontinence Hyperglycemia (12/22/15) Hyperthyroidism (11/11/14) Hypothyroidism (acquired) Measles Menopausal syndrome (12/21/10) Menopause Migraine with aura and without status migrainosus, not intractable (01/08/15) Mild persistent asthma without complication (02/29/16) Mixed hyperlipidemia (11/11/14) Mumps (~1958) Osteoarthritis of left knee (12/21/10) Osteoarthritis of right knee Osteoporosis (01/27/17) Panic disorder (12/21/10) Plantar warts Sleep apnea Thyroid nodule (~1988) Vision disorder Surgical History History of lumpectomy (~1978) History of tonsillectomy (~1957) Status post arthroscopy (~07/1998) Status post arthroscopy (~2013) Family History Father Type II diabetes mellitus Pancreatic cancer Grandfather Stroke Grandmother Alzheimer's dementia Mental health problem Mother Type II diabetes mellitus Coronary atherosclerosis Hypertension, benign Cancer Mental health problem Stroke Grandfather Cancer Grandmother Cancer Social History marital status: number of children: 2 household members: spouse lives independently: Yes caregiver/support person: No housing: house pets and animals: No education level: college occupational status: other current occupational exposures/hazards: No Previous occupational history: Housewife. tim/confucianism: [employer] leisure activities: exercise, reading and other Smoking Status: Never smoker Tobacco: How many years used: 0 quit status: quit date established second hand exposure: No alcohol intake: never substance use type: does not use eating out: rarely or never Type(s) of exercise: bicycling Smoking Status: Never smoker Substance Use Type: does not use Exam Narrative Exam Narrative: GENERAL: [71] year old patient appears stated age. Well-developed patient, in mild distress. HEAD: Atraumatic. Normocephalic. EYES: Pupils equal round and reactive. Extraocular motions intact. No scleral icterus. No injection or drainage. ENT: Dry mucous membranes Nose without bleeding, purulent drainage. Throat without erythema, tonsillar hypertrophy or exudate. Airway patent. NECK: Trachea midline. Non tender CARDIOVASCULAR: Regular rate and rhythm without murmurs, gallops, or rubs. RESPIRATORY: Clear to auscultation. Breath sounds equal bilaterally. No wheezes, rales, or rhonchi. GASTROINTESTINAL: Abdomen soft, non-tender, nondistended. EXTREMITIES: Tenderness to palpation right posterior hip though she has full range of motion including flexion-extension as well as internal and external rotation. She has no pain with axial loading. 5/5 muscle strength, this is cl osed, isolated and neurovascularly intact BACK: Nontender without deformity or crepitance. No flank tenderness. NEURO: AOx3. SKIN: No rash or erythema of visible areas Initial Vital Signs Initial Vital Signs: Vital Signs Temperature 99.2 F 01/16/22 18:06 Pulse Rate 87 01/16/22 18:06 Respiratory Rate 20 01/16/22 18:06 Blood Pressure 160/72 H 01/16/22 18:06 Pulse Oximetry 97 01/16/22 18:06 Oxygen Delivery Method 01/16/22 18:06 Course Orders Ordered: Discontinued Medications Cefazolin Sodium (Cephalexin 250 Mg Prepack) 1 bottle MISC SEEINSTR ONE Stop: 01/16/22 20:55 Last Admin: 01/16/22 21:05 Dose: 500 mg Documented By: ADILENE Sodium Chloride (Normal Saline 0.9%) 1,000 mls @ 1,000 mls/hr IV BOLUS ONE Stop: 01/16/22 19:33 Last Infusion: 01/16/22 20:40 Dose: 0 mls/hr Documented By: Admin: 01/16/22 19:04 Dose: 1,000 mls/hr Documented By: ADILENE Vital Signs Vital signs: Vital Signs - 8 hr 01/16/22 18:06 01/16/22 19:28 Temperature 99.2 F Pulse Rate 87 82 Respiratory Rate 20 16 Blood Pressure 160/72 H 183/76 H Pulse Oximetry 97 97 Oxygen Delivery Method Room Air Room Air MDM - Weakness Lab Data Result diagrams: 01/16/22 12:51 01/16/22 12:51 Labs: Lab Results 01/16/22 01/16/22 01/16/22 Range/Units 12:51 12:51 12:51 WBC 9.9 (4.5-11.0) X10^3/uL RBC 4.93 (4.0-5.2) X10^6/uL Hgb 13.9 (12.0-16.0) g/dL Hct 41.3 (36-46) % MCV 83.8 (80-100) fL MCH 28.3 (26-34) PG MCHC 33.7 (30-36) % RDW 13.6 (11.6-14.8) % Plt Count 146 L (150-400) X10^3/uL Neut % (Auto) 81.0 H (50-75) % Lymph % (Auto) 6.8 L (25-40) % [place] % (Auto) 11.9 (3-14) % Eos % (Auto) 0.1 L (2-4) % Baso % (Auto) 0.2 (0-2) % Neut # (Auto) 8000 H (9100-6989) /uL Lymph # (Auto) 700 L (8801-1616) /uL [place] # (Auto) 1200 H (0-900) /uL Eos # (Auto) 0 (0-450) /uL Baso # (Auto) 0 (0-100) /uL PT 14.6 H (10.1-12.7) SECONDS INR 1.3 (0.9-1.3) Sodium 133 L (137-145) mmol/L Potassium 3.7 (3.4-5.1) mmol/L Chloride 99 (98-107) mmol/L Carbon Dioxide 26 (22-32) mmol/L BUN 8 (7-17) mg/dL Creatinine 0.44 L (0.52-1.04) mg/dL Estimated GFR > 60 (>60) mL/min BUN/Creatinine Ratio 18.2 (6-22) Glucose 206 H (80-110) mg/dL Calcium 8.5 (8.4-10.2) mg/dL Magnesium 1.6 (1.6-2.3) mg/dL Total Bilirubin 0.7 (0.2-1.3) mg/dL AST 20 (14-36) IU/L ALT 19 (<35) IU/L Alkaline Phosphatase 82 (38-126) U/L Total Creatine Kinase (30-135) U/L CK-MB (CK-2) (<2.37) ng/mL CK-MB (CK-2) Rel Index (1.5-5.0) % Troponin I (0.01-0.034) ng/mL NT-Pro-B Natriuret Pep 390 H (<125) pg/mL Total Protein 6.6 (6.3-8.2) g/dL Albumin 3.9 (3.5-5.0) g/dL Globulin 2.7 (1.7-4.1) g/dL Albumin/Globulin Ratio 1.4 (1.0-2.8) Lipase 40 (23-300) U/L Urine RBC (0-5/HPF) Urine WBC (0-5/HPF) Ur Squamous Epith Cells (0-5/HPF) Urine Bacteria (None) Micro UA Comment SARS-CoV-2 (PCR) (Negative) Influenza A (RT-PCR) (NEGATIVE) Influenza B (RT-PCR) (NEGATIVE) RSV (PCR) (Negative) 01/16/22 01/16/22 01/16/22 Range/Units 12:51 19:04 20:30 WBC (4.5-11.0) X10^3/uL RBC (4.0-5.2) X10^6/uL Hgb (12.0-16.0) g/dL Hct (36-46) % MCV (80-100) fL MCH (26-34) PG MCHC (30-36) % RDW (11.6-14.8) % Plt Count (150-400) X10^3/uL Neut % (Auto) (50-75) % Lymph % (Auto) (25-40) % [place] % (Auto) (3-14) % Eos % (Auto) (2-4) % Baso % (Auto) (0-2) % Neut # (Auto) (6400-2249) /uL Lymph # (Auto) (3246-2954) /uL [place] # (Auto) (0-900) /uL Eos # (Auto) (0-450) /uL Baso # (Auto) (0-100) /uL PT (10.1-12.7) SECONDS INR (0.9-1.3) Sodium (137-145) mmol/L Potassium (3.4-5.1) mmol/L Chloride (98-107) mmol/L Carbon Dioxide (22-32) mmol/L BUN (7-17) mg/dL Creatinine (0.52-1.04) mg/dL Estimated GFR (>60) mL/min BUN/Creatinine Ratio (6-22) Glucose (80-110) mg/dL Calcium (8.4-10.2) mg/dL Magnesium (1.6-2.3) mg/dL Total Bilirubin (0.2-1.3) mg/dL AST (14-36) IU/L ALT (<35) IU/L Alkaline Phosphatase (38-126) U/L Total Creatine Kinase 103 (30-135) U/L CK-MB (CK-2) < 0.22 (<2.37) ng/mL CK-MB (CK-2) Rel Index 0.2 L (1.5-5.0) % Troponin I 0.014 (0.01-0.034) ng/mL NT-Pro-B Natriuret Pep (<125) pg/mL Total Protein (6.3-8.2) g/dL Albumin (3.5-5.0) g/dL Globulin (1.7-4.1) g/dL Albumin/Globulin Ratio (1.0-2.8) Lipase (23-300) U/L Urine RBC None seen (0-5/HPF) Urine WBC 1-5/hpf (0-5/HPF) Ur Squamous Epith Cells 0-1 /hpf (0-5/HPF) Urine Bacteria Moderate (10-30) H (None) Micro UA Comment * SARS-CoV-2 (PCR) Negative (Negative) Influenza A (RT-PCR) Flu a negative (NEGATIVE) Influenza B (RT-PCR) Flu b negative (NEGATIVE) RSV (PCR) Negative (Negative) Urine Dip Bedside Urine Glucose Negative Bedside Urine Bilirubin - Negative Bedside Urine Ketone - Negative Urine Specific [place] 1.005 Bedside Urine Occult Blood +/- Bedside Urine pH 6.0 Bedside Urine Protein - Negative Bedside Urine Urobilinogen - Negative Bedside Urine Nitrite - Negative Bedside Urine Leukocytes +/- 15 Esterase Imaging Data Chest x-ray: Radiologist Impression: [address] [address] XRay Report Signed Patient: Beatrice Gudino MR#: [id number] : 1950 Acct:[id number] Age/Sex: 71 / F Date of Service: 01/16/22 Loc: ED Accession Number: [id number] ?? Procedure: XR chest 1V Ordering Provider: Lawson Hampton D.O. PROCEDURE:? XR CHEST 1V ? INDICATIONS:? weakness ? TECHNIQUE:? One view of the chest was acquired.? ? COMPARISON:? [facility], , CHEST 2 VIEW, 01/19/2016, 13:30. ? FINDINGS:? ? Surgical changes and devices:? None.? ? Lungs and pleura:? Lungs are clear.? No pleural effusions or pneumothorax.? Interstitial prominence is unchanged compared to the prior study and is likely chronic.? ? Mediastinum:? Mediastinal contours appear normal.? Heart size is normal.? ? Bones and chest wall:? No suspicious bony lesions.? Overlying soft tissues appear unremarkable.? ? IMPRESSION:? No acute cardiopulmonary abnormality. ? ? ? Dictated by: Jossue Carrillo M.D. on 01/16/2022 at 19:22 ? ? Approved by: Jossue Carrillo M.D. on 01/16/2022 at 19:23 ? Hip: Radiologist Impression: [address] [address] XRay Report Signed Patient: Beatrice Gudino MR#: [id number] : 1950 Acct:[id number] Age/Sex: 71 / F Date of Service: 01/16/22 Loc: ED Accession Number: [id number] ?? Procedure: XR hip w pel if done RT 2V Ordering Provider: Lawson Hampton D.O. PROCEDURE:? XR HIP W PEL IF DONE RT 2V ? INDICATIONS:? fall with hip pain ? TECHNIQUE:? 2 views of the pelvis right hip were acquired.? ? COMPARISON:? None. ? FINDINGS:? ? Bones:? No fractures or dislocations.? No suspicious bony lesions.? The visualized pelvic ring appears intact.? The right hip has degenerative changes.? There are degenerative changes of both hips and the symphysis pubis. ? Soft tissues:? No suspicious soft tissue calcifications or masses.? ? IMPRESSION:? No acute traumatic abnormality of the pelvis or right hip. ? ? Dictated by: Jossue Carrillo M.D. on 01/16/2022 at 19:23 ? ? Approved by: Jossue Carrillo M.D. on 01/16/2022 at 19:25 ? CT Pelvis: Radiologist Impression: [address] [address] [address] Scan Report Signed Patient: Beatrice Gudino MR#: [id number] : 1950 Acct:[id number] Age/Sex: 71 / F Date of Service: 01/16/22 Loc: ED Accession Number: [id number] ?? Procedure: Ct Hip right without con Ordering Provider: Lawson Hampton D.O. PROCEDURE:? CT HIP RIGHT WITHOUT CON ? INDICATIONS:? fall with severe R hip pain, normal Xray ? TECHNIQUE:? Noncontrast 3 mm axial sections acquired through the bony pelvis.? Additional 3 mm axial sections acquired through the symptomatic hip joint, with coronal and sagittal reformats. ? ? COMPARISON:? [facility], CR, XR HIP W PEL IF DONE RT 2V, 01/16/2022, 18:55. ? FINDINGS:? Image quality:? Excellent.? ? Bones:? No fractures or dislocation.? There is mild axial joint space narrowing and mild collar osteophytosis in the right hip.? The bony pelvis appears intact.? There is moderate facet arthropathy within the lower lumbar spine.? Mild to moderate degenerative disc disease demonstrated at L5-S1. ? Soft tissues:? No definite hip joint effusion.? No discrete soft tissue hematoma collection.? Visualized musculature appears preserved.? No intraperitoneal free fluid within the pelvis.? There is colonic diverticulosis without acute diverticulitis. ? ? IMPRESSION:? ? 1. No evidence of fracture or dislocation. ? If clinical concern persists, further evaluation may be obtained with MRI. ? Dictated by: Tom Pham M.D. on 01/16/2022 at 20:07 ? ? Approved by: Tom Pham M.D. on 01/16/2022 at 20:11 ? Discharge Plan Departure Patient Disposition: Home Clinical Impression: Contusion of hip, Vomiting, Acute UTI Instructions: Contusion, DI for Urinary Tract Infection (UTI), DI for Vomiting -- Adult Activity Restrictions/Additional Instructions: *You have been diagnosed with [hip contusion, vomiting. As we discussed your history and physical exam, as well as labs and imaging are reassuring. The hip x-ray and CT both demonstrate no evidence of fracture or dislocation. *What to do: *Please continue to take your regular medications as directed. [ x] New medication prescriptions sent to your pharmacy: [ [facility]] [ ] New medication written as a paper prescription [ ] No new medications given *Please follow up with your primary care provider in 2-3 days, call for an appointment. Let them know you were seen in the Emergency Department and that we ask that you be seen in follow up. We will electronically transmit a record of today's note if your PCP is in our system *If you do not have a primary care provider please contact the [facility] Resource line at [phone]. They will ask some questions about your medical history and help get you set up with a doctor in the community. *Return to Emergency Department if you should have any new, worsening or concerning symptoms, such as [fever greater than 101 F, shaking chills, worsening pain, persistent vomiting or other bothersome symptoms] Prescriptions: New cephalexin 500 mg capsule 500 mg PO BID Qty: 10 0RF No Action latanoprost [Xalatan] 0.005 % drops 1 drp OPHTH HS Qty: 0 ascorbic acid (vitamin C) 500 MG tablet 500 mg PO QDAY Qty: 0 Spacer: Inhaler Spacer Device Qty: 1 0RF calcium carbonate [Tums Ultra] 1,000 MG tablet,chewable 1,000 mg PO Qty: 0 albuterol sulfate [Ventolin HFA] 90 mcg/actuation HFA aerosol inhaler 1 - 2 puff INH Q4HP PRNQty: 8 11RF loratadine [Claritin] 10 mg tablet 10 mg PO QDAY PRN (Reason: allergy symptoms) Qty: 0 sumatriptan succinate 50 mg tablet 50 mg PO Q4H PRN (Reason: migraine headache) Qty: 9 6RF atorvastatin 10 mg tablet 10 mg PO DAILY Qty: 90 3RF diclofenac sodium 75 mg tablet,delayed release (DR/EC) 75 - 150 mg PO DAILY Qty: 180 1RF fluticasone propionate 50 mcg/actuation spray,suspension 2 spray Intranasal HS Qty: 16 6RF Rx Instructions: 2 sprays in each nostril at bedtime. lansoprazole 30 mg capsule,delayed release(DR/EC) 30 mg PO DAILY Qty: 90 3RF fluoxetine [Prozac] 10 mg capsule 10 mg PO QDAY Qty: 90 1RF (DME) Disabled Parking Qty: 1 0RF Rx Instructions: Patient qualifies for disabled parking as per the attached form. timolol maleate 0.5 % drops 1 drop EYE-BOTH DAILY glipizide 5 mg tablet 2.5 mg PO BID Qty: 90 3RF Referrals: Dillon Castellon MD [Primary Care Provider] - Visit Report Forms: Patient Portal/API
[2022-01-16] MEDS: SODIUM CHLORIDE 0.9% 1,000 ML 1000 ML IV (19:04)
[2022-01-16 19:06] LABS: INR 1.3 (0.9-1.3); Prothrombin Time 14.6 SECONDS (10.1-12.7)
[2022-01-16 19:08] LABS: Add Manual Diff / Slide Review NO; Basophils Absolute Auto 0 /uL (0-100); Basophils Percent Auto 0.2 % (0-2); Eosinophils Absolute Auto 0 /uL (0-450); Eosinophils Percent Auto 0.1 % (2-4); Hematocrit 41.3 % (36-46); Hemoglobin 13.9 g/dL (12.0-16.0); Lymphocytes Absolute Auto 700 /uL (1100-4500); Lymphocytes Percent Auto 6.8 % (25-40); Mean Corpuscular HGB Conc 33.7 % (30-36); Mean Corpuscular Hemoglobin 28.3 PG (26-34); Mean Corpuscular Volume 83.8 fL (80-100); Monocytes Absolute Auto 1200 /uL (0-900); Monocytes Percent Auto 11.9 % (3-14); Neutrophils Absolute Auto 8000 /uL (1500-7000); Platelet Count 146 X10^3/uL (150-400); Red Blood Cell Count 4.93 X10^6/uL (4.0-5.2); Red Cell Distribution Width 13.6 % (11.6-14.8); White Blood Cell Count 9.9 X10^3/uL (4.5-11.0)
[2022-01-16 19:11] LABS: Alanine Aminotransferase 19 IU/L (<35); Albumin 3.9 g/dL (3.5-5.0); Albumin Globulin Ratio 1.4 (1.0-2.8); Alkaline Phosphatase 82 U/L (38-126); Aspartate Aminotransferase 20 IU/L (14-36); BUN Creatinine Ratio 18.2 (6-22); Bilirubin Total 0.7 mg/dL (0.2-1.3); Blood Urea Nitrogen 8 mg/dL (7-17); Calcium 8.5 mg/dL (8.4-10.2); Carbon Dioxide 26 mmol/L (22-32); Chloride 99 mmol/L (98-107); Creatine Kinase 103 U/L (30-135); Estimated Glomerular Filt Rate > 60 mL/min (>60); Globulin 2.7 g/dL (1.7-4.1); Glucose 206 mg/dL (80-110); HEMOLYSIS < 15 (0-50); Lipase 40 U/L (23-300); Magnesium 1.6 mg/dL (1.6-2.3); Potassium 3.7 mmol/L (3.4-5.1); Sodium 133 mmol/L (137-145); Total Protein 6.6 g/dL (6.3-8.2)
[2022-01-16 19:20] LABS: NT-proBNP (BNP-Adult 18+) 390 pg/mL (<125)
[2022-01-16 19:23] LABS: Troponin I 0.014 ng/mL (0.01-0.034)
[2022-01-16 19:27] LABS: CKMB % Relative Index 0.2 % (1.5-5.0); Creatine Kinase MB < 0.22 ng/mL (<2.37)
--- NOTE | 2022-01-16 19:42 | DI.CT.S_ITS ---
PROCEDURE: CT HIP RIGHT WITHOUT CON INDICATIONS: fall with severe R hip pain, normal Xray TECHNIQUE: Noncontrast 3 mm axial sections acquired through the bony pelvis. Additional 3 mm axial sections acquired through the symptomatic hip joint, with coronal and sagittal reformats. COMPARISON: [facility], CR, XR HIP W PEL IF DONE RT 2V, 01/16/2022, 18:55. FINDINGS: Image quality: Excellent. Bones: No fractures or dislocation. There is mild axial joint space narrowing and mild collar osteophytosis in the right hip. The bony pelvis appears intact. There is moderate facet arthropathy within the lower lumbar spine. Mild to moderate degenerative disc disease demonstrated at L5-S1. Soft tissues: No definite hip joint effusion. No discrete soft tissue hematoma collection. Visualized musculature appears preserved. No intraperitoneal free fluid within the pelvis. There is colonic diverticulosis without acute diverticulitis. IMPRESSION: 1. No evidence of fracture or dislocation. If clinical concern persists, further evaluation may be obtained with MRI. Dictated by: Tom Pham M.D. on 01/16/2022 at 20:07 Approved by: Tom Pham M.D. on 01/16/2022 at 20:11
[2022-01-16 19:51] LABS: COVID-19 CEPHEID 4-PLEX PCR Negative (Negative); Influenza A - CEPHEID Flu A NEGATIVE (NEGATIVE); Influenza B - CEPHEID Flu B NEGATIVE (NEGATIVE); Respiratory Syncytial Virus Negative (Negative)
[2022-01-16] MEDS: cephALEXin 250 MG PREPACK 1 BOTTLE MISC (21:05)
[2022-01-16 21:28] LABS: Bacteria Urine Moderate (10-30); RBC Urine None Seen (0-5/HPF); Squamous Epithelial Cell Urine 0-1 /HPF (0-5/HPF); WBC Urine 1-5/HPF (0-5/HPF)
== END 2022-01-16 21:20 | disposition home or self-care (01) ==
PROVIDERS: Emergency Provider Emergency Medicine; PCP Internal Medicine
DX: S70.01XA Contusion of right hip, initial encounter (principal); R11.2 Nausea with vomiting, unspecified; N39.0 Urinary tract infection, site not specified; W01.0XXA Fall on same level from slipping, tripping and stumbling without subsequent striking against object, initial encounter; Z20.822 Contact with and (suspected) exposure to COVID-19
CPT/HCPCS: 0241U; 36415; 71045; 73502; 73700; 80053; 81003; 81015; 82550; 82553; 83690; 83735; 83880; 84484; 85025; 85610; 93005; 96360; 96361; 99284

== ENCOUNTER → 2022-01-20 14:41 | Outpatient (CLI) | payer OTHER, SELFPAY ==
--- NOTE | 2022-01-20 14:41 | DI.MG.S_ITS ---
BILATERAL DIGITAL SCREENING MAMMOGRAM 3D/2D WITH CAD: 01/20/2022 CLINICAL: Routine screening. Family history of breast cancer. Comparison is made to exams dated: 01/12/2021 mammogram, 12/04/2019 mammogram, and 06/20/2018 mammogram - [facility]. Both breasts are heterogeneously dense, which may obscure small masses (category c / 51-75% glandular tissue). Current study was also evaluated with a Computer Aided Detection (CAD) system. No significant masses, calcifications, or other findings are seen in either breast. There has been no significant interval change. IMPRESSION: NEGATIVE There is no mammographic evidence of malignancy. A 1 year screening mammogram is recommended. Based on the Tyrer Cuzick model (a risk assessment model) the patient's lifetime risk is 12.5% and her 10 year risk is 10.3%. According to the ACR, ACS, and NCCN guidelines, an annual breast MRI exam along with mammogram is recommended if the patient's lifetime risk is 20% or greater. This exam was interpreted at Station ID: [id number]. NOTE: For mammograms, a report in lay terms will be sent to the patient. Approximately 15% of breast malignancies will not be visualized mammographically. In the management of a palpable breast mass, a negative mammogram must not discourage biopsy of a clinically suspicious lesion. Electronically Signed By: German gutierrez/yuniel:01/20/2022 16:49:38 letter sent: Normal Exam ACR BI-RADS Category 1: Negative 3341F
== END ==
PROVIDERS: PCP Internal Medicine; Referring Provider Internal Medicine; Visit Provider Internal Medicine
DX: Z12.31 Encounter for screening mammogram for malignant neoplasm of breast (principal); Z80.3 Family history of malignant neoplasm of breast
CPT/HCPCS: 77063; 77067

== ENCOUNTER → 2022-02-09 11:18 | Outpatient (CLI) | payer OTHER, SELFPAY ==
[2022-02-09 12:24] LABS: Appearance Urine UA CLEAR; Bilirubin Urine UA NEGATIVE (NEGATIVE); Color Urine UA YELLOW; Glucose Urine UA NEGATIVE (Negative); Ketones Urine UA NEGATIVE (NEGATIVE); Leukocyte Esterase Urine UA TRACE (NEGATIVE); Nitrite Urine UA NEGATIVE (Negative); Occult Blood Urine UA NEGATIVE (Negative); Protein Urine UA NEGATIVE (Negative); Urobilinogen Urine UA 0.2 E.U./dL (0.2)
[2022-02-09 12:31] LABS: Bacteria Urine None Seen; Culture Indicated Urine Specimen Cultured; RBC Urine None Seen (0-5/HPF); Squamous Epithelial Cell Urine None Seen (0-5/HPF); WBC Urine None Seen (0-5/HPF)
[2022-02-09 12:39] LABS: Hemoglobin A1C% w Est Avg Glu 7.2 % (4.0-6.0)
[2022-02-09 13:15] LABS: Alanine Aminotransferase 19 IU/L (<35); Albumin 4.1 g/dL (3.5-5.0); Albumin Globulin Ratio 1.6 (1.0-2.8); Alkaline Phosphatase 92 U/L (38-126); Aspartate Aminotransferase 22 IU/L (14-36); BUN Creatinine Ratio 20.8 (6-22); Bilirubin Total 0.8 mg/dL (0.2-1.3); Blood Urea Nitrogen 11 mg/dL (7-17); Calcium 8.7 mg/dL (8.4-10.2); Carbon Dioxide 28 mmol/L (22-32); Chloride 100 mmol/L (98-107); Cholesterol 159 mg/dL (140-199); Estimated Glomerular Filt Rate > 60 mL/min (>60); Globulin 2.6 g/dL (1.7-4.1); Glucose 167 mg/dL (80-110); HDL Cholesterol 52 mg/dL (40-60); HEMOLYSIS < 15 (0-50); LDL Cholesterol Calculated 88 mg/dL (<100); Potassium 4.2 mmol/L (3.4-5.1); Sodium 137 mmol/L (137-145); Total Protein 6.7 g/dL (6.3-8.2); Triglycerides 95 mg/dL (35-150)
== END ==
PROVIDERS: PCP Internal Medicine; Referring Provider Internal Medicine; Visit Provider Internal Medicine
DX: E11.9 Type 2 diabetes mellitus without complications (principal); Z87.440 Personal history of urinary (tract) infections
CPT/HCPCS: 36415; 80053; 80061; 81001; 83036; 87086

== ENCOUNTER → 2022-06-16 15:25 | Outpatient (CLI) | payer OTHER, SELFPAY ==
[2022-06-16 18:05] LABS: Appearance Urine UA SL CLOUDY; Bilirubin Urine UA NEGATIVE (NEGATIVE); Color Urine UA YELLOW; Glucose Urine UA NEGATIVE (Negative); Ketones Urine UA NEGATIVE (NEGATIVE); Leukocyte Esterase Urine UA 1+ (NEGATIVE); Nitrite Urine UA NEGATIVE (Negative); Occult Blood Urine UA NEGATIVE (Negative); Protein Urine UA NEGATIVE (Negative); Urobilinogen Urine UA 0.2 E.U./dL (0.2)
[2022-06-16 18:12] LABS: pH Urine UA 5.5 (4.5-8.0)
[2022-06-16 18:39] LABS: Bacteria Urine Moderate (10-30); Culture Indicated Urine Specimen Cultured; Squamous Epithelial Cell Urine 1-5 /HPF (0-5/HPF); Transitional Epi Cells Urine 1-5/HPF (0-5/HPF); WBC Urine 5-10/HPF (0-5/HPF)
[2022-06-16 18:40] LABS: RBC Urine None Seen (0-5/HPF)
== END ==
PROVIDERS: PCP Internal Medicine; Referring Provider Internal Medicine; Visit Provider Internal Medicine
DX: R39.9 Unspecified symptoms and signs involving the genitourinary system (principal)
CPT/HCPCS: 81001; 87077; 87086; 87186

== ENCOUNTER → 2022-08-10 10:54 | Outpatient (CLI) | payer OTHER, SELFPAY ==
[2022-08-10 12:46] LABS: Alanine Aminotransferase 26 IU/L (<35); Albumin Globulin Ratio 1.8 (1.0-2.8); Alkaline Phosphatase 87 U/L (38-126); Aspartate Aminotransferase 26 IU/L (14-36); BUN Creatinine Ratio 26.5 (6-22); Bilirubin Total 0.6 mg/dL (0.2-1.3); Blood Urea Nitrogen 13 mg/dL (7-17); Calcium 8.8 mg/dL (8.4-10.2); Carbon Dioxide 30 mmol/L (22-32); Chloride 100 mmol/L (98-107); Cholesterol 173 mg/dL (140-199); Estimated Glomerular Filt Rate > 60 mL/min (>60); Globulin 2.2 g/dL (1.7-4.1); Glucose 142 mg/dL (80-110); HDL Cholesterol 67 mg/dL (40-60); HEMOLYSIS < 15 (0-50); LDL Cholesterol Calculated 86 mg/dL (<100); Potassium 4.3 mmol/L (3.4-5.1); Sodium 136 mmol/L (137-145); Total Protein 6.2 g/dL (6.3-8.2); Triglycerides 98 mg/dL (35-150)
[2022-08-10 13:00] LABS: Free T4, Direct Thyroxine 1.66 ng/dL (0.78-2.19)
[2022-08-10 13:17] LABS: Thyroid Stimulating Hormone < 0.015 uIU/mL (0.47-4.68)
[2022-08-10 16:45] LABS: Creatinine Urine Random 63.9 mg/dL
[2022-08-10 16:49] LABS: Microalbumi Creatinin Ratio Ur 17.2 ug/mg CR (<30); Microalbumin Urine Random 1.1 mg/dL (0-1.6)
[2022-08-11 04:38] LABS: x Labcorp Estim. Avg Glu (eAG) 160 mg/dL (.); x Labcorp Hemoglobin A1c 7.2 % (4.8-5.6)
== END ==
PROVIDERS: PCP Internal Medicine; Referring Provider Internal Medicine; Visit Provider Internal Medicine
DX: E03.9 Hypothyroidism, unspecified; E78.2 Mixed hyperlipidemia; E11.9 Type 2 diabetes mellitus without complications
CPT/HCPCS: 36415; 80053; 80061; 82043; 82570; 83036; 84439; 84443

== ENCOUNTER → 2022-10-19 12:11 | Outpatient (CLI) | payer OTHER, SELFPAY ==
[2022-10-19 13:26] LABS: Appearance Urine UA CLEAR; Bilirubin Urine UA NEGATIVE (NEGATIVE); Color Urine UA YELLOW; Glucose Urine UA 1+ g/dL (Negative); Ketones Urine UA 2+ (NEGATIVE); Leukocyte Esterase Urine UA NEGATIVE (NEGATIVE); Nitrite Urine UA POSITIVE (Negative); Occult Blood Urine UA TRACE-INTACT (Negative); Protein Urine UA TRACE (Negative); Specific Gravity Urine UA 1.025 (1.000-1.035); Urobilinogen Urine UA 0.2 E.U./dL (0.2)
[2022-10-19 13:38] LABS: Bacteria Urine Many (>30); Culture Indicated Urine Specimen Cultured; Mucus Urine 1+ (Negative); RBC Urine 0-1/HPF (0-5/HPF); Squamous Epithelial Cell Urine 0-1 /HPF (0-5/HPF); Transitional Epi Cells Urine 0-1/HPF (0-5/HPF); WBC Urine 5-10/HPF (0-5/HPF)
== END ==
PROVIDERS: PCP Internal Medicine; Referring Provider Internal Medicine; Visit Provider Internal Medicine
DX: R30.0 Dysuria (principal)
CPT/HCPCS: 81001; 87077; 87086; 87186

== ENCOUNTER → 2022-11-16 14:56 | Outpatient (CLI) | payer OTHER, SELFPAY ==
[2022-11-16 17:40] LABS: Appearance Urine UA CLEAR; Bilirubin Urine UA NEGATIVE (NEGATIVE); Color Urine UA YELLOW; Glucose Urine UA NEGATIVE (Negative); Ketones Urine UA NEGATIVE (NEGATIVE); Leukocyte Esterase Urine UA TRACE (NEGATIVE); Nitrite Urine UA NEGATIVE (Negative); Occult Blood Urine UA NEGATIVE (Negative); Protein Urine UA NEGATIVE (Negative); Specific Gravity Urine UA <=1.005 (1.000-1.035); Urobilinogen Urine UA 0.2 E.U./dL (0.2)
[2022-11-16 17:52] LABS: pH Urine UA 5.5 (4.5-8.0)
[2022-11-16 17:53] LABS: Bacteria Urine Few (2-10); Culture Indicated Urine Specimen Cultured; RBC Urine None Seen (0-5/HPF); Squamous Epithelial Cell Urine 0-1 /HPF (0-5/HPF); WBC Urine 1-5/HPF (0-5/HPF)
== END ==
PROVIDERS: PCP Internal Medicine; Referring Provider Internal Medicine; Visit Provider Internal Medicine
DX: R35.0 Frequency of micturition (principal); R39.89 Other symptoms and signs involving the genitourinary system
CPT/HCPCS: 81001; 87077; 87086; 87186

== ENCOUNTER → 2023-02-14 15:20 | Outpatient (CLI) | payer OTHER, SELFPAY ==
--- NOTE | 2023-02-14 15:22 | DI.RAD.S_ITS ---
Bone Density Report Name: GEMA BLANCO Age: 72 Sex: Female Ethnicity: White Date of : 1950 Indication: postmenopausal osteoporosis; Referring Provider: JALEN TATUM Study: Bone densitometry was performed. Exam Date: February 14, 2023 Accession number: [id number] Bone Density: Region BMD T-score Z-score Classification AP Spine(L1-L4) 0.798 -2.3 0.1 Osteopenia Femoral Neck (Left) 0.539 -2.8 -0.7 Osteoporosis Total Hip (Left) 0.576 -3.0 -1.2 Osteoporosis Femoral Neck (Right) 0.514 -3.0 -1.0 Osteoporosis Total Hip (Right) 0.568 -3.1 -1.3 Osteoporosis Total Hip Mean 0.572 -3.1 -1.3 Osteoporosis World Health Organization criteria for BMD impression classify patients as: Normal (T-score at or above -1.0), Osteopenia (T-score between -1.0 and -2.5), or Osteoporosis (T-score at or below -2.5). 10-year Fracture Risk: FRAX not reported because: Some T-score for Spine Total or Hip Total or Femoral Neck at or below -2.5 Previous Exams: -- Region Exam Age BMD T-score BMD Change BMD Change Date g/cm2 vs Baseline vs Previous -- AP Spine (L1-L4) 02/14/2023 72 0.798 -2.3 -0.087 (-9.8%)# -0.048 (-5.7%)# 01/14/2021 70 0.847 -1.8 -0.039 (-4.4%)* -0.018 (-2.1%) 01/11/2019 68 0.864 -1.7 -0.021 (-2.4%) -0.021 (-2.4%) 01/06/2017 66 0.885 -1.5 Total Hip(Left) 02/14/2023 72 0.576 -3.0 -0.073 (-11.3%)# -0.019 (-3.1%)# 01/14/2021 70 0.595 -2.8 -0.055 (-8.4%)* 0.016 (2.8%) 01/11/2019 68 0.578 -3.0 -0.071 (-10.9%)* -0.071 (-10.9%)* 01/06/2017 66 0.649 -2.4 Total Hip(Right) 02/14/2023 72 0.568 -3.1 -0.039 (-6.4%)# 0.002 (0.3%)# 01/14/2021 70 0.567 -3.1 -0.040 (-6.7%)* 0.014 (2.6%) 01/11/2019 68 0.552 -3.2 -0.055 (-9.0%)* -0.055 (-9.0%)* 01/06/2017 66 0.607 -2.7 -- *Denotes significance at 95% confidence level, LSC for AP Spine = 0.022 g/cm2, LSC for Total Hip = 0.027 g/cm2 # Denotes dissimilar scan types or analysis methods Impression: The patient has osteoporosis, based on the Right Total Hip T-score. No significant bone loss was observed. Discussion: INCREASED RISK OF FRACTURE. BONE DENSITY IS UNDESIRABLY LOW AT ONE OR MORE SKELETAL SITES, CONSISTENT WITH POSTMENOPAUSAL OSTEOPOROSIS. This patient's lowest T-score meets the World Health Organization's (WHO) criteria for osteoporosis at one or more sites (T-score -2.5 or below). In untreated patients, the risk of osteoporotic fracture increases approximately two-fold for each 1.0 SD decrease in T-score. Low bone density is not the only risk factor for fracture; also consider factors such as patient's age, frailty or poor health, risk of falling, risk of injury, previous osteoporotic fracture, family history of osteoporosis, cigarette smoking, low body weight, etc. Not everyone with low bone mineral density has osteoporosis; osteomalacia and other metabolic bone disorders should also be considered. Patients who have osteoporosis should be evaluated for specific diseases and conditions (secondary causes) that may cause or contribute to bone loss. The [place] [employer]ocrinologists (AACE) and National Osteoporosis Foundation (NOF) recommend pharmacologic intervention for all postmenopausal women whose T-score is in this range. The patient should follow a healthful lifestyle (good nutrition with adequate calcium and vitamin D, and appropriate weight-bearing exercise). Follow-Up: Consider a repeat BMD and Vertebral Fracture Assessment (VFA) exam in 2 years or sooner if medically necessary, to reassess this patient's status. Reported by: CHINA PLATT M.D. on 02/14/2023 3:43:00 PM.
--- NOTE | 2023-02-14 15:22 | DI.MG.S_ITS ---
BILATERAL DIGITAL SCREENING MAMMOGRAM 3D/2D WITH CAD: 02/14/2023 CLINICAL: Routine screening. Family history of breast cancer. Comparison is made to exams dated: 01/20/2022 mammogram, 01/12/2021 mammogram, 12/04/2019 mammogram, 06/20/2018 mammogram, and 06/13/2017 mammogram - [facility]. Both breasts are heterogeneously dense, which may obscure small masses (category c / 51-75% glandular tissue). Current study was also evaluated with a Computer Aided Detection (CAD) system. No significant masses, calcifications, or other findings are seen in either breast. Left breast scar marker. There has been no significant interval change. IMPRESSION: NEGATIVE There is no mammographic evidence of malignancy. A 1 year screening mammogram is recommended. Based on the Tyrer Cuzick model (a risk assessment model) the patient's lifetime risk is 11.7% and her 10 year risk is 10.6%. According to the ACR, ACS, and NCCN guidelines, an annual breast MRI exam along with mammogram is recommended if the patient's lifetime risk is 20% or greater. This exam was interpreted at Station ID: [id number]. NOTE: For mammograms, a report in lay terms will be sent to the patient. Approximately 15% of breast malignancies will not be visualized mammographically. In the management of a palpable breast mass, a negative mammogram must not discourage biopsy of a clinically suspicious lesion. Electronically Signed By: Bryant [place] M.D. [facility] [place]02/15/2023 11:07:36 letter sent: Normal Exam ACR BI-RADS Category 1: Negative [id number]
== END ==
LOC: RAD 15:21
PROVIDERS: PCP Internal Medicine; Referring Provider Internal Medicine; Visit Provider Internal Medicine
DX: Z80.3 Family history of malignant neoplasm of breast (principal); Z12.31 Encounter for screening mammogram for malignant neoplasm of breast; R92.333 Mammographic heterogeneous density, bilateral breasts; M81.0 Age-related osteoporosis without current pathological fracture
CPT/HCPCS: 77063; 77067; 77080

== ENCOUNTER → 2023-02-16 13:41 | Outpatient (CLI) | payer OTHER, SELFPAY ==
[2023-02-16 15:45] LABS: Free T3, Triiodothyronine Free 3.08 pg/mL (2.77-5.27); Free T4, Direct Thyroxine 1.51 ng/dL (0.78-2.19)
[2023-02-16 16:02] LABS: Thyroid Stimulating Hormone < 0.015 uIU/mL (0.47-4.68)
[2023-02-16 17:06] LABS: Blood Urea Nitrogen 13 mg/dL (7-17); Calcium 9.3 mg/dL (8.4-10.2); Carbon Dioxide 27 mmol/L (22-32); Chloride 98 mmol/L (98-107); Estimated Glomerular Filt Rate > 60 mL/min (>60); Glucose 164 mg/dL (80-110); HEMOLYSIS < 15 (0-50); Potassium 4.3 mmol/L (3.4-5.1); Sodium 134 mmol/L (137-145)
== END ==
PROVIDERS: PCP Internal Medicine; Referring Provider Internal Medicine; Visit Provider Internal Medicine
DX: E11.9 Type 2 diabetes mellitus without complications (principal); E03.9 Hypothyroidism, unspecified; E78.2 Mixed hyperlipidemia
CPT/HCPCS: 36415; 80048; 83036; 84439; 84443; 84481

== ENCOUNTER → 2023-03-23 14:58 | Outpatient (CLI) | payer OTHER, SELFPAY ==
--- NOTE | 2023-03-23 15:00 | DI.RAD.S_ITS ---
PROCEDURE: XR SHOULDER RT MIN 2V INDICATIONS: disc/pain TECHNIQUE: 3 views of the shoulder were acquired. COMPARISON: [facility], , SHOULDER MINIMUM 2VIEW RIGHT, 08/01/2008, 15:24. FINDINGS: Bones: No fractures or dislocations. Large inferiorly directed osteophyte arising from the humeral head. Severe acromioclavicular joint degeneration. No suspicious bony lesions. Visualized ribs appear intact. Soft tissues: No suspicious soft tissue calcifications. 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 Dictated by: Noe Sam M.D. on 03/23/2023 at 15:43 Approved by: Noe Sam M.D. on 03/23/2023 at 15:45
== END ==
PROVIDERS: PCP Internal Medicine; Referring Provider Internal Medicine; Visit Provider Internal Medicine
DX: M25.511 Pain in right shoulder (principal)
CPT/HCPCS: 73030

== ENCOUNTER → 2023-05-17 14:44 | Outpatient (CLI) | payer OTHER, SELFPAY ==
[2023-05-17 15:40] LABS: Hemoglobin A1C% w Est Avg Glu 6.8 % (4.0-6.0)
[2023-05-17 15:55] LABS: BUN Creatinine Ratio 25.9 (6-22); Blood Urea Nitrogen 14 mg/dL (7-17); Calcium 9.2 mg/dL (8.4-10.2); Carbon Dioxide 29 mmol/L (22-32); Chloride 104 mmol/L (98-107); Estimated Glomerular Filt Rate > 60 mL/min (>60); Glucose 108 mg/dL (80-110); HEMOLYSIS < 15 (0-50); Potassium 4.3 mmol/L (3.4-5.1); Sodium 137 mmol/L (137-145)
== END ==
LOC: LAB 14:45
PROVIDERS: Family Provider Internal Medicine; PCP Internal Medicine; Referring Provider Internal Medicine; Visit Provider Internal Medicine
DX: E11.65 Type 2 diabetes mellitus with hyperglycemia (principal)
CPT/HCPCS: 80048; 83036

== ENCOUNTER → 2023-09-19 15:36 | Outpatient (CLI) | payer OTHER, SELFPAY ==
--- NOTE | 2023-09-19 15:38 | DI.MRI.S_ITS ---
PROCEDURE: MR SHOULDER RT WO CON INDICATIONS: Shoulder Pain - right TECHNIQUE: Noncontrast oblique coronal T2 fast spin echo with fat saturation, oblique sagittal T1 spin echo and T2 fast spin echo with fat saturation, axial T1 spin echo and T2 fast spin echo with fat saturation through the shoulder. COMPARISON: [facility], CR, XR SHOULDER RT MIN 2V, 03/23/2023, 15:07. FINDINGS: Image quality: Excellent. Rotator cuff: In the supraspinatus, there is high-grade interstitial tear at the mid footprint, extending into low-grade interstitial tear at the posterior footprint. The infraspinatus is unremarkable. The teres minor tendon is intact. The subscapularis is unremarkable. There is mild muscle edema of the supraspinatus. No fatty atrophy. Bones and bursae: Moderate degenerative changes of the acromioclavicular joint. Type 1 acromion. No os acromiale. No significant subacromial/subdeltoid bursitis. Severe degenerative changes of the glenohumeral joint with extensive subchondral cystic changes in the humeral head, in the glenoid. There is diffuse marked marrow edema of the glenoid, degenerative. Large osteophytosis of the humeral head. No acute fracture. Capsule and soft tissues: Diffuse labral tear and degeneration. Mild tenosynovitis of the extra-articular biceps tendon. The intra-articular biceps tendon is intact. No significant glenohumeral effusion. 1.3 cm loose body in the subscapular bursa. IMPRESSION: 1. Moderate degenerative change of the acromioclavicular joint. 2. Severe degenerative changes of the glenohumeral joint. 3. High-grade tear at the mid footprint of the supraspinatus, extending into low-grade tear of the posterior footprint. 4. Mild tenosynovitis of the extra-articular biceps tendon. 5. 1.3 cm loose body in the subscapularis bursa. Dictated by: Keiko Proctor M.D. on 09/20/2023 at 10:10 Approved by: Keiko Proctor M.D. on 09/20/2023 at 10:21
== END ==
PROVIDERS: Family Provider Internal Medicine; PCP Internal Medicine; Referring Provider Internal Medicine; Visit Provider Internal Medicine
DX: M75.111 Incomplete rotator cuff tear or rupture of right shoulder, not specified as traumatic (principal); M65.821 Other synovitis and tenosynovitis, right upper arm; M24.011 Loose body in right shoulder; M25.511 Pain in right shoulder
CPT/HCPCS: 73221

== ENCOUNTER → 2023-10-20 14:42 | Outpatient (CLI) | payer OTHER, SELFPAY ==
[2023-10-20 15:24] LABS: Appearance Urine UA CLEAR; Bilirubin Urine UA NEGATIVE (NEGATIVE); Color Urine UA YELLOW; Glucose Urine UA NEGATIVE (Negative); Ketones Urine UA NEGATIVE (NEGATIVE); Leukocyte Esterase Urine UA TRACE (NEGATIVE); Nitrite Urine UA NEGATIVE (Negative); Occult Blood Urine UA NEGATIVE (Negative); Protein Urine UA NEGATIVE (Negative); Specific Gravity Urine UA <=1.005 (1.000-1.035); Urobilinogen Urine UA 0.2 E.U./dL (0.2)
[2023-10-20 15:44] LABS: Bacteria Urine Moderate (10-30); Urine Volume 10mL (spun)
[2023-10-20 15:45] LABS: Culture Indicated Urine Cult Not Indicated; RBC Urine None Seen (0-5/HPF); Squamous Epithelial Cell Urine None Seen (0-5/HPF); WBC Urine 1-5/HPF (0-5/HPF)
== END ==
PROVIDERS: Family Provider Internal Medicine; PCP Internal Medicine; Referring Provider Internal Medicine; Visit Provider Internal Medicine
DX: R30.0 Dysuria (principal)
CPT/HCPCS: 81001

== ENCOUNTER → 2023-11-15 11:06 | Outpatient (CLI) | payer OTHER, SELFPAY ==
[2023-11-15 13:40] LABS: Alanine Aminotransferase 17 IU/L (<35); Albumin 3.8 g/dL (3.5-5.0); Albumin Globulin Ratio 1.7 (1.0-2.8); Alkaline Phosphatase 77 U/L (38-126); Aspartate Aminotransferase 22 IU/L (14-36); BUN Creatinine Ratio 23.5 (6-22); Bilirubin Total 0.5 mg/dL (0.2-1.3); Blood Urea Nitrogen 12 mg/dL (7-17); Calcium 9.1 mg/dL (8.4-10.2); Carbon Dioxide 30 mmol/L (22-32); Chloride 100 mmol/L (98-107); Cholesterol 159 mg/dL (140-199); Estimated Glomerular Filt Rate > 60 mL/min (>60); Globulin 2.3 g/dL (1.7-4.1); Glucose 161 mg/dL (80-110); HDL Cholesterol 65 mg/dL (40-60); HEMOLYSIS < 15 (0-50); LDL Cholesterol Calculated 80 mg/dL (<100); Potassium 4.2 mmol/L (3.4-5.1); Sodium 134 mmol/L (137-145); Total Protein 6.1 g/dL (6.3-8.2); Triglycerides 70 mg/dL (35-150)
[2023-11-15 15:07] LABS: Free T4, Direct Thyroxine 1.52 ng/dL (0.78-2.19)
[2023-11-15 15:35] LABS: Thyroid Stimulating Hormone < 0.015 uIU/mL (0.47-4.68)
[2023-11-15 16:09] LABS: Hemoglobin A1C% w Est Avg Glu 7.5 % (4.0-6.0)
== END ==
PROVIDERS: Family Provider Internal Medicine; PCP Internal Medicine; Referring Provider Internal Medicine; Visit Provider Internal Medicine
DX: E11.9 Type 2 diabetes mellitus without complications (principal); E03.9 Hypothyroidism, unspecified; E78.2 Mixed hyperlipidemia
CPT/HCPCS: 36415; 80053; 80061; 83036; 84439; 84443

== ENCOUNTER → 2024-02-15 13:37 | Outpatient (CLI) | payer OTHER, SELFPAY ==
[2024-02-15 14:54] LABS: BUN Creatinine Ratio 22.9 (6-22); Blood Urea Nitrogen 11 mg/dL (7-17); Calcium 9.3 mg/dL (8.4-10.2); Carbon Dioxide 28 mmol/L (22-32); Chloride 100 mmol/L (98-107); Estimated Glomerular Filt Rate > 60 mL/min (>60); Glucose 249 mg/dL (80-110); HEMOLYSIS < 15 (0-50); Potassium 4.3 mmol/L (3.4-5.1); Sodium 132 mmol/L (137-145)
[2024-02-15 15:40] LABS: Hemoglobin A1C% w Est Avg Glu 7.6 % (4.0-6.0)
== END ==
PROVIDERS: Family Provider Internal Medicine; PCP Internal Medicine; Referring Provider Internal Medicine; Visit Provider Internal Medicine
DX: E11.65 Type 2 diabetes mellitus with hyperglycemia (principal)
CPT/HCPCS: 36415; 80048; 83036

== ENCOUNTER → 2024-03-01 15:03 | Outpatient (CLI) | payer OTHER, SELFPAY ==
--- NOTE | 2024-03-01 | DI.MG.S_ITS ---
BILATERAL DIGITAL SCREENING MAMMOGRAM 3D/2D WITH CAD: 03/01/2024 CLINICAL: Routine screening. Family history of breast cancer. Comparison is made to exams dated: 02/14/2023 mammogram, 01/20/2022 mammogram, 01/12/2021 mammogram, 12/04/2019 mammogram, 06/20/2018 mammogram, and 06/13/2017 mammogram - [facility]. The breasts are heterogeneously dense, which may obscure small masses (category c / 51-75% glandular tissue). Current study was also evaluated with a Computer Aided Detection (CAD) system. No significant masses, calcifications, or other findings are seen in either breast. There has been no significant interval change. IMPRESSION: NEGATIVE There is no mammographic evidence of malignancy. A 1 year screening mammogram is recommended. Based on the Tyrer Cuzick model (a risk assessment model) the patient's lifetime risk is 10.8% and her 10 year risk is 10.8%. According to the ACR, ACS, and NCCN guidelines, an annual breast MRI exam along with mammogram is recommended if the patient's lifetime risk is 20% or greater. This exam was interpreted at Station ID: [id number]. NOTE: For mammograms, a report in lay terms will be sent to the patient. Approximately 15% of breast malignancies will not be visualized mammographically. In the management of a palpable breast mass, a negative mammogram must not discourage biopsy of a clinically suspicious lesion. Electronically Signed By: Annabel Lindsay M.D., Ph.D. [facility]:03/01/2024 19:37:18 letter sent: Normal Exam ACR BI-RADS Category 1: Negative
== END ==
PROVIDERS: Family Provider Internal Medicine; PCP Internal Medicine; Referring Provider Internal Medicine; Visit Provider Internal Medicine
DX: Z12.31 Encounter for screening mammogram for malignant neoplasm of breast (principal); Z80.3 Family history of malignant neoplasm of breast
CPT/HCPCS: 77063; 77067

== ENCOUNTER → 2024-05-14 15:33 | Outpatient (CLI) | payer OTHER, SELFPAY ==
[2024-05-14 16:08] LABS: Hemoglobin A1C% w Est Avg Glu 7.5 % (4.0-6.0)
[2024-05-14 16:24] LABS: Alanine Aminotransferase 22 IU/L (<35); Albumin 4.2 g/dL (3.5-5.0); Albumin Globulin Ratio 2.1 (1.0-2.8); Alkaline Phosphatase 68 U/L (38-126); Aspartate Aminotransferase 26 IU/L (14-36); BUN Creatinine Ratio 24.1 (6-22); Bilirubin Total 0.6 mg/dL (0.2-1.3); Blood Urea Nitrogen 13 mg/dL (7-17); Calcium 9.4 mg/dL (8.4-10.2); Carbon Dioxide 27 mmol/L (22-32); Chloride 99 mmol/L (98-107); Estimated Glomerular Filt Rate > 60 mL/min (>60); Glucose 154 mg/dL (80-110); HEMOLYSIS < 15 (0-50); Potassium 4.3 mmol/L (3.4-5.1); Sodium 134 mmol/L (137-145); Total Protein 6.2 g/dL (6.3-8.2)
== END ==
PROVIDERS: Family Provider Internal Medicine; PCP Internal Medicine; Referring Provider Internal Medicine; Visit Provider Internal Medicine
DX: E11.65 Type 2 diabetes mellitus with hyperglycemia (principal); E78.2 Mixed hyperlipidemia
CPT/HCPCS: 36415; 80053; 83036

== ENCOUNTER → 2024-11-13 11:39 | Outpatient (CLI) | payer OTHER, SELFPAY ==
[2024-11-13 12:48] LABS: Hemoglobin A1C% w Est Avg Glu 8.6 % (4.0-6.0)
[2024-11-13 13:17] LABS: Alanine Aminotransferase 30 IU/L (<35); Albumin 4.4 g/dL (3.5-5.0); Albumin Globulin Ratio 2.0 (1.0-2.8); Alkaline Phosphatase 90 U/L (38-126); Blood Urea Nitrogen 10 mg/dL (7-17); Calcium 9.2 mg/dL (8.4-10.2); Carbon Dioxide 27 mmol/L (22-32); Chloride 100 mmol/L (98-107); Cholesterol 162 mg/dL (140-199); Estimated Glomerular Filt Rate > 60 mL/min (>60); Globulin 2.2 g/dL (1.7-4.1); Glucose 199 mg/dL (70-99); HDL Cholesterol 66 mg/dL (40-60); HEMOLYSIS < 15 (0-50); Sodium 135 mmol/L (137-145); Total Protein 6.6 g/dL (6.3-8.2); Triglycerides 86 mg/dL (35-150)
[2024-11-13 13:20] LABS: Potassium 4.6 mmol/L (3.4-5.1)
[2024-11-13 13:30] LABS: Free T4, Direct Thyroxine 1.64 ng/dL (0.78-2.19)
[2024-11-13 13:44] LABS: Thyroid Stimulating Hormone < 0.015 uIU/mL (0.47-4.68)
== END ==
PROVIDERS: Family Provider Internal Medicine; PCP Internal Medicine; Referring Provider Internal Medicine; Visit Provider Internal Medicine
DX: E11.9 Type 2 diabetes mellitus without complications (principal); E78.2 Mixed hyperlipidemia; E03.9 Hypothyroidism, unspecified
CPT/HCPCS: 36415; 80053; 80061; 83036; 84439; 84443

== ENCOUNTER → 2024-11-18 15:56 | Outpatient (CLI) | payer OTHER, SELFPAY ==
[2024-11-18 18:23] LABS: Appearance Urine UA CLEAR; Bilirubin Urine UA NEGATIVE (NEGATIVE); Color Urine UA YELLOW; Glucose Urine UA NEGATIVE (Negative); Ketones Urine UA NEGATIVE (NEGATIVE); Leukocyte Esterase Urine UA TRACE (NEGATIVE); Nitrite Urine UA NEGATIVE (Negative); Occult Blood Urine UA NEGATIVE (Negative); Protein Urine UA NEGATIVE (Negative); Specific Gravity Urine UA 1.010 (1.000-1.035); Urobilinogen Urine UA 0.2 E.U./dL (0.2)
[2024-11-18 18:30] LABS: pH Urine UA 5.5 (4.5-8.0)
[2024-11-18 18:33] LABS: Culture Indicated Urine Specimen Cultured
== END ==
PROVIDERS: PCP Internal Medicine; Referring Provider Internal Medicine; Visit Provider Internal Medicine
DX: N39.0 Urinary tract infection, site not specified (principal)
CPT/HCPCS: 81001; 87077; 87086